=== PATIENT | female | born 1930 | race Caucasian/White ===

== ENCOUNTER 2016-10-12 10:28 | Emergency (ER) | payer MEDICARE ==
[2016-10-12 10:45] VITALS: TEMP 98.3; BMI 17.4
[2016-10-12] MEDS ORDERED: SODIUM CHLORIDE 0.9% 3 ML FLUSH FLUSH PRN (11:00)
[2016-10-12] MEDS ORDERED: NS 1,000 ML IV ONE (11:01)
[2016-10-12 11:12] LABS: AUTOMATED BASOPHIL 1.1 % (0-2); AUTOMATED EOSINOPHIL 2.1 % (0-5); AUTOMATED LYMPH 29.4 % (17-44); AUTOMATED MONOCYTE 9.8 % (3-10); AUTOMATED NEUTROPHIL 57.6 % (45-76); MPV 7.8 fL (7.4-10.4)
[2016-10-12 11:24] LABS: BLOOD UREA NITROGEN 19 MG/DL (7-17); CALCIUM 9.6 MG/DL (8.4-10.2); CALCULATED OSMOLALITY 277 MOs/Kg (270-290); CHLORIDE 105 mEq/L (98-107); GLUCOSE 91 MG/DL (70-99); SODIUM LEVEL 143 mEq/L (137-146); TOTAL PROTEIN 7.5 G/DL (6.3-8.2)
[2016-10-12 11:25] LABS: PARTIAL THROMB. TIME 22.9 SEC (22-35)
--- NOTE | 2016-10-12 11:28 | DIRPT ---
CLINICAL DATA: Right facial weakness and numbness beginning this morning. EXAM: PORTABLE CHEST 1 VIEW COMPARISON: 08/13/2014 FINDINGS: Mild cardiomegaly. No confluent airspace opacities, effusions or edema. No acute bony abnormality. IMPRESSION: Mild cardiomegaly. No active disease. Electronically Signed By: Joaquin Mantilla M.D. On: 10/12/2016 11:26
--- NOTE | 2016-10-12 11:43 | DIRPT ---
CLINICAL DATA: Right side facial numbness starting this a.m. EXAM: CT HEAD WITHOUT CONTRAST TECHNIQUE: Contiguous axial images were obtained from the base of the skull through the vertex without intravenous contrast. COMPARISON: 08/13/2014 FINDINGS: No skull fracture is noted. Mild atherosclerotic calcifications of carotid siphon. No intracranial hemorrhage, mass effect or midline shift. Stable mild cerebral atrophy. Stable periventricular chronic white matter disease. No definite acute cortical infarction. No mass lesion is noted on this unenhanced scan. No intra or extra-axial fluid collection. IMPRESSION: No acute intracranial abnormality. Stable atrophy and chronic white matter disease. Electronically Signed By: Reji Neri M.D. On: 10/12/2016 11:40
[2016-10-12 12:09] LABS: LEUKOCYTES/URINE 1+ (NEGATIVE); NITRITE/URINE NEG (NEGATIVE); RBC/URINE 0-2 (0-5); URINE OCCULT BLOOD NEG (NEG/TRACE); WBC/URINE 0-2 (0-5)
--- NOTE | 2016-10-12 12:30 | EDPRACDOC ---
- Treatment Prior to ED Arrival Reported ASPIRIN 160MG DAILY <Eduardo Johnson - Last Filed: 10/12/16 13:35> - General Information Information Source: Patient Mode of Arrival:: Car - History of Present Illness Exact Onset of Symptoms: Unknown Date Symptoms Started: 10/12/16 Symptoms Started: Reports: While asleep Symptoms: Reports: Numbness (RIGHT SIDE FACE EAR, NECK AND RIGHT ARM.) Symptoms Description: Improved Symptom Severity: Reports: Does not affect activitiy Weakness: Right: Arm, Face, Other (RIGHT EAR) Associated signs and symptoms:: Reports: None - Other History Other History: PT SENT TO ED FROM URGENT CARE FOR RIGHT SIDE EAR NUMBNESS FACE NECK AND FUNNY FEELING OF RIGHT ARM STATES IT WAS GOING ON WHEN SHE WOKE UP AROUND 7AM, UNKNOWN EXACT ONSET PT STATES MOST OF HER SYMPTOMS HAVE RESOLVED ACCEPT MILD NUMB FEELING OF HER RIGHT EAR. NO SLURRED SPEECH FACIAL DROOPING OR UNILATERAL WEAKNESS AT THIS TIME. <Eduardo Johnson - Last Filed: 10/12/16 13:35> <Casandra Campos - Last Filed: 10/12/16 17:41> - General Information Chief Complaint: Neuro Symptoms/Deficits Stated Complaint: STROKE LIKE SYMPTOMS Time Seen by Provider: 10/12/16 10:59 Home Medications: Home Medications Aspirin [Lo-Dose Aspirin EC] 160 mg PO DAILY 08/13/14 Calcium Carbonate [Calcium] 600 mg PO DAILY 08/13/14 Captopril 12.5 mg PO QAM 08/13/14 Levothyroxine [Synthroid, Levoxyl] 50 mcg PO DAILY 08/13/14 Metoprolol Succinate (XL) [Toprol Xl] 50 mg PO DAILY #30 tab 08/13/14 Mirtazapine [Remeron] 7.5 mg PO HS PRN 10/12/16 Allergies/Adverse Reactions: Allergies Allergy/AdvReac Type Severity Reaction Status Date / Time atorvastatin calcium Allergy See Verified 10/12/16 10:45 [From Lipitor] Comments codeine Allergy See Verified 10/12/16 10:45 Comments ezetimibe [From Zetia] Allergy See Verified 10/12/16 10:45 Comments Penicillins Allergy Hives* Verified 10/12/16 10:45 procaine HCl [From Novocain] Allergy See Verified 10/12/16 10:45 Comments simvastatin [From Zocor] Allergy See Verified 10/12/16 10:45 Comments Sulfa (Sulfonamide Allergy See Verified 10/12/16 10:45 Antibiotics) Comments ED Past Medical History - History Reviewed Yes Nurses notes reviewed and agree except as marked Travel Outside of [place] in the Last 3 Months?: No - Patient Medical History Cardiac History: Reports: Hypertension, Hypercholesterolemia (UNTREATED) Psychological History: Denies: Depression Systemic History: Reports: Hypothyroidism - Social Medical History Smoking Status: Former smoker ETOH: None Substance Abuse: None Lives With: Other Lives In: Home <Eduardo Johnson - Last Filed: 10/12/16 13:35> EDM Review of Systems - Review of Systems ROS Negative Except as Marked: Yes All systems reviewed and were negative except as marked Constitutional: No Symptoms Reported. negative: Fever, Chills, Weakness, Fatigue, Loss of Appetite Eyes: No Symptoms Reported. negative: Redness, Blurred Vision, Double Vision, Discharge, Pain, Light Sensitive, Photophobia Ears: Other (RT EAR NUMBNESS). negative: Drainage, Ear Pulling, Hearing Loss, Pain Throat: No Symptoms Reported. negative: Pain, Swelling Nose: No Symptoms Reported. negative: Congestion, Bleeding, Discharge, Injection, Swelling, Deformity, Ecchymosis, Tender, Abrasion, Laceration Mouth: No Symptoms Reported. negative: Pain, Drooling Respiratory: No Symptoms Reported. negative: Cough, Brassy Cough, Barky Cough, Shortness of Breath, Wheezing, Hemoptysis Cardiovascular: No Symptoms Reported. negative: Chest Pain, Palpitations, Syncope, Edema, Orthopnea, PND, Skin Mottling, Cyanosis Gastrointestinal: No Symptoms Reported. negative: Pain, Constipation, Nausea, Vomiting, Diarrhea, Melena, Formula Intolerance Genitourinary: No Symptoms Reported. negative: Dysuria, Hematuria, Frequency, Discharge, Bleeding, Testicular Pain, Neurological: Numbness (RT EAR FACE NECK AND ARM STATES NOTICED IT WHEN SHE WOKE UP THIS AM. PT STATES SYMPTOMS HAVE ALMOST COMPLETELY RESOLVED AT THIS TIME.). negative: Dizziness, Gait Difficulty, Headache, Seizure, Speech Difficulty, Weakness Musculoskeletal: No Symptoms Reported. negative: Neck, Chestwall, Ribs, Back, Shoulder, Arm, Elbow, Forearm, Wrist, Hand, Pelvis, Hip, Femur, Knee, Leg, Ankle , Foot Integumentary: No Symptoms Reported. negative: Itching, Rash, Bruising, Wound Allergic/Immunologic: No Symptoms Reported. negative: Hives, Itching Hematologic: No Symptoms Reported. negative: Lymphadenopathy, Easy Bruising, Easy Bleeding Endocrine: No Symptoms Reported. negative: Weight Gain, Weight Loss Psychiatric: No Symptoms Reported. negative: Anxiety, Depression, Hallucinations, Insomnia, Suicidal <Eduardo Johnson - Last Filed: 10/12/16 13:35> - Physical Exam Constitutional: Alert (Awake), No apparent distress Oriented to: Time, Person, Place Last recorded Vital Signs: Last Vital Signs Temp 98.3 F 10/12/16 10:38 Pulse 63 10/12/16 11:30 Resp 18 10/12/16 11:30 BP 190/84 H 10/12/16 11:30 Pulse Ox 97 10/12/16 11:30 Oxygen Pulse Oxygen Saturation 97 O2 Device Oxygen Flow Rate Fraction of Inspired Oxygen ( FIO2) - HEENT Head: Normal ( normocephalic) Eye Exam: Normal (PERRL, EOMI, Sclera white) Oropharynx: Normal (Pharynx:Moist without exudate,Gums-no swelling) Tympanic Membrane: Normal ENT EAC: Normal, Other (PT DOES HAVE FEELING IN BOTH EXTERNAL EARS, SHE STATES JUST FEELS DIFFERENT) TMJ: Normal Nose: No Symptoms Reported (septum midline) Neck: Normal (FROM, trachea at midline) - Respiratory/Cardiovascular Respiratory: Normal - CTA (BBS clear to auscultation without adventitious sounds ) Cardiovascular: Normal (RRR without murmur, gallop or rub) - GI Auscultation: Normal (NABS) Palpation: Normal (Soft,No rebound or guarding, non distended) Tenderness: Non tender Real's Sign: Negative - Bladder: Normal - Musculoskeletal Back: Normal (Non-Tender) Extremities: Normal (Normal tone, Pulses 2+ No cyanosis or edema, FROM) - Integumentary Skin: Normal, Warm, Dry Lymphatics: Normal (no adenopathy) - Neurologic Memory Impaired: Normal Motor Function: Normal (Normal tone, Pulses 2+ No cyanosis or edema, FROM) Cranial Nerve: Normal (CN II-X11 intact sensation, strength 5/5) Cerebellar: Normal Mood Description: Normal Thought: Coherent Perception: Normal <Eduardo Johnson - Last Filed: 10/12/16 13:35> - Physical Exam Last recorded Vital Signs: Last Vital Signs Temp 98.3 F 10/12/16 10:38 Pulse 70 10/12/16 14:22 Resp 20 10/12/16 14:22 BP 168/85 10/12/16 14:22 Pulse Ox 97 10/12/16 14:22 Oxygen Pulse Oxygen Saturation 97 O2 Device Room Air Oxygen Flow Rate Fraction of Inspired Oxygen ( FIO2) <CamposKaykay higginskiara Torres - Last Filed: 10/12/16 17:41> NIH Stroke Scale Initial Evaluation Level of Consciousness: Alert LOC- Question: Answers Both Correctly LOC Commands: Both Task Correctly Best Gaze: Normal Visual: No Visual Loss Facial Palsy: Normal Movement Motor Arm LEFT: No Drift Motor Arm RIGHT: No Drift Motor Leg LEFT: No Drift Motor Leg RIGHT: No Drift Limb Ataxia: Absent Sensory: Normal Best Language: No Aphasia Dysarthria: Normal Extinction and Inattention: No Abnormality (Neglect) Score: 0out of42 <Eduardo Johnson - Last Filed: 10/12/16 13:35> - Differential Diagnosis Salmeron's Palsy, CVA, Electrolyte disorder, Hypoglycemia, Mass lesion, SAH, TIA - Action Has patient received an Antithrombotic in the last 24hrs?: No Was an Antithrombotic given in the ED?: No (SYMPTOMS RESOLVING, ONSET UNDETERMINED) Antithrombotic Contraindicated: Other *free text (SYMPTOMS RESOLVING ONSET UNDETERMINED) Is patient a candidate for lytic therapy?: No Patient received TPA within 30 min of arrival?: No Reason IV Thrombolytics Contraindicated: Onset Undetermined Stroke Discharge Education: Risk Factors, Seeking Emerg. Treatment, Warning Signs/Symptoms, Medications at Discharge, Follow Up after Discharge - Results 10/12/16 10:40 10/12/16 10:40 WBC 10.0 xk/uL (3.8-10.8) 10/12/16 10:40 RBC 4.40 xM/uL (4.20-5.40) 10/12/16 10:40 Hgb 13.6 g/dL (12.0-16.0) 10/12/16 10:40 Hct 40.8 % (36-47) 10/12/16 10:40 MCV 93 fL (81-99) 10/12/16 10:40 MCH 30.9 pg (27-32) 10/12/16 10:40 MCHC 33.3 g/dl (33-36) 10/12/16 10:40 RDW 14.2 % (11.5-14.5) 10/12/16 10:40 Plt Count 243 xk/uL (130-400) 10/12/16 10:40 MPV 7.8 fL (7.4-10.4) 10/12/16 10:40 Neut % (Auto) 57.6 % (45-76) 10/12/16 10:40 Lymph % (Auto) 29.4 % (17-44) 10/12/16 10:40 [place] % (Auto) 9.8 % (3-10) 10/12/16 10:40 Eos % (Auto) 2.1 % (0-5) 10/12/16 10:40 Baso % (Auto) 1.1 % (0-2) 10/12/16 10:40 Absolute Neuts (auto) 5.70 xk/uL (1.7-8.2) 10/12/16 10:40 Absolute Lymphs (auto) 2.90 xk/uL (0.65-4.75) 10/12/16 10:40 PT 10.3 SEC (9.2-11.2) 10/12/16 10:40 INR 1.0 10/12/16 10:40 APTT 22.9 SEC (22-35) 10/12/16 10:40 Sodium 143 mEq/L (137-146) 10/12/16 10:40 Potassium 3.7 mEq/L (3.5-5.1) 10/12/16 10:40 Chloride 105 mEq/L (98-107) 10/12/16 10:40 Carbon Dioxide 28 mMOL/L (22-33) 10/12/16 10:40 Anion Gap 14 mEq/L (8-16) 10/12/16 10:40 BUN 19 MG/DL (7-17) H 10/12/16 10:40 Creatinine 0.90 MG/DL (0.52-1.04) 10/12/16 10:40 Estimated GFR (MDRD) 60 mL/min (>=60) 10/12/16 10:40 Glucose 91 MG/DL (70-99) 10/12/16 10:40 Calculated Osmolality 277 MOs/Kg (270-290) 10/12/16 10:40 Calcium 9.6 MG/DL (8.4-10.2) 10/12/16 10:40 Total Bilirubin 0.5 MG/DL (0.2-1.3) 10/12/16 10:40 AST 26 IU/L (14-36) 10/12/16 10:40 ALT 29 IU/L (9-52) 10/12/16 10:40 Alkaline Phosphatase 105 IU/L (55-165) 10/12/16 10:40 Troponin I < 0.01 ng/mL (<.04) 10/12/16 10:40 Xfc-V-Fjjrlaeomjx Pept 451 pg/mL (0-1800) 10/12/16 10:40 Total Protein 7.5 G/DL (6.3-8.2) 10/12/16 10:40 Albumin 4.0 G/DL (3.5-5.0) 10/12/16 10:40 Urine Color Pale yellow 10/12/16 11:55 Urine Clarity Clear 10/12/16 11:55 Urine pH 6.0 (5.0-8.0) 10/12/16 11:55 Ur Specific [place] 1.010 (1.003-1.035) 10/12/16 11:55 Urine Protein Neg (NEG/TRACE) 10/12/16 11:55 Urine Glucose (UA) Neg (NEGATIVE) 10/12/16 11:55 Urine Ketones Neg (NEGATIVE) 10/12/16 11:55 Urine Occult Blood Neg (NEG/TRACE) 10/12/16 11:55 Urine Nitrite Neg (NEGATIVE) 10/12/16 11:55 Urine Bilirubin Neg (NEGATIVE) 10/12/16 11:55 Urine Urobilinogen <2.0 MG/DL (0-1) 10/12/16 11:55 Ur Leukocyte Esterase 1+ (NEGATIVE) H 10/12/16 11:55 Urine RBC 0-2 (0-5) 10/12/16 11:55 Urine WBC 0-2 (0-5) 10/12/16 11:55 Ur Epithelial Cells Occ 10/12/16 11:55 Urine Bacteria Few (NEG/FEW) 10/12/16 11:55 Lab Results 10/12/16 10/12/16 10/12/16 11:55 10:40 10:40 WBC 10.0 RBC 4.40 Hgb 13.6 Hct 40.8 MCV 93 MCH 30.9 MCHC 33.3 RDW 14.2 Plt Count 243 MPV 7.8 Neut % (Auto) 57.6 Lymph % (Auto) 29.4 [place] % (Auto) 9.8 Eos % (Auto) 2.1 Baso % (Auto) 1.1 Absolute Neuts (auto) 5.70 Absolute Lymphs (auto) 2.90 PT 10.3 INR 1.0 APTT 22.9 Sodium Potassium Chloride Carbon Dioxide Anion Gap BUN Creatinine Estimated GFR (MDRD) Glucose Calculated Osmolality Calcium Total Bilirubin AST ALT Alkaline Phosphatase Troponin I Vlf-E-Rqcmasydgfr Pept Total Protein Albumin Urine Color Pale yellow Urine Clarity Clear Urine pH 6.0 Ur Specific [place] 1.010 Urine Protein Neg Urine Glucose (UA) Neg Urine Ketones Neg Urine Occult Blood Neg Urine Nitrite Neg Urine Bilirubin Neg Urine Urobilinogen <2.0 Ur Leukocyte Esterase 1+ H Urine RBC 0-2 Urine WBC 0-2 Ur Epithelial Cells Occ Urine Bacteria Few 10/12/16 10:40 WBC RBC Hgb Hct MCV MCH MCHC RDW Plt Count MPV Neut % (Auto) Lymph % (Auto) [place] % (Auto) Eos % (Auto) Baso % (Auto) Absolute Neuts (auto) Absolute Lymphs (auto) PT INR APTT Sodium 143 Potassium 3.7 Chloride 105 Carbon Dioxide 28 Anion Gap 14 BUN 19 H Creatinine 0.90 Estimated GFR (MDRD) 60 Glucose 91 Calculated Osmolality 277 Calcium 9.6 Total Bilirubin 0.5 AST 26 ALT 29 Alkaline Phosphatase 105 Troponin I < 0.01 Gou-D-Mgcohipbmuc Pept 451 Total Protein 7.5 Albumin 4.0 Urine Color Urine Clarity Urine pH Ur Specific [place] Urine Protein Urine Glucose (UA) Urine Ketones Urine Occult Blood Urine Nitrite Urine Bilirubin Urine Urobilinogen Ur Leukocyte Esterase Urine RBC Urine WBC Ur Epithelial Cells Urine Bacteria - Diagnostic Imaging CT HEAD Image interpreted by: Radiologist IMPRESSION: No acute intracranial abnormality. Stable atrophy and chronic white matter disease. CXR Image interpreted by: Radiologist IMPRESSION: Mild cardiomegaly. No active disease. <Eduardo Johnson - Last Filed: 10/12/16 13:35> - Results 10/12/16 10:40 10/12/16 10:40 WBC 10.0 xk/uL (3.8-10.8) 10/12/16 10:40 RBC 4.40 xM/uL (4.20-5.40) 10/12/16 10:40 Hgb 13.6 g/dL (12.0-16.0) 10/12/16 10:40 Hct 40.8 % (36-47) 10/12/16 10:40 MCV 93 fL (81-99) 10/12/16 10:40 MCH 30.9 pg (27-32) 10/12/16 10:40 MCHC 33.3 g/dl (33-36) 10/12/16 10:40 RDW 14.2 % (11.5-14.5) 10/12/16 10:40 Plt Count 243 xk/uL (130-400) 10/12/16 10:40 MPV 7.8 fL (7.4-10.4) 10/12/16 10:40 Neut % (Auto) 57.6 % (45-76) 10/12/16 10:40 Lymph % (Auto) 29.4 % (17-44) 10/12/16 10:40 [place] % (Auto) 9.8 % (3-10) 10/12/16 10:40 Eos % (Auto) 2.1 % (0-5) 10/12/16 10:40 Baso % (Auto) 1.1 % (0-2) 10/12/16 10:40 Absolute Neuts (auto) 5.70 xk/uL (1.7-8.2) 10/12/16 10:40 Absolute Lymphs (auto) 2.90 xk/uL (0.65-4.75) 10/12/16 10:40 PT 10.3 SEC (9.2-11.2) 10/12/16 10:40 INR 1.0 10/12/16 10:40 APTT 22.9 SEC (22-35) 10/12/16 10:40 Sodium 143 mEq/L (137-146) 10/12/16 10:40 Potassium 3.7 mEq/L (3.5-5.1) 10/12/16 10:40 Chloride 105 mEq/L (98-107) 10/12/16 10:40 Carbon Dioxide 28 mMOL/L (22-33) 10/12/16 10:40 Anion Gap 14 mEq/L (8-16) 10/12/16 10:40 BUN 19 MG/DL (7-17) H 10/12/16 10:40 Creatinine 0.90 MG/DL (0.52-1.04) 10/12/16 10:40 Estimated GFR (MDRD) 60 mL/min (>=60) 10/12/16 10:40 Glucose 91 MG/DL (70-99) 10/12/16 10:40 Calculated Osmolality 277 MOs/Kg (270-290) 10/12/16 10:40 Calcium 9.6 MG/DL (8.4-10.2) 10/12/16 10:40 Total Bilirubin 0.5 MG/DL (0.2-1.3) 10/12/16 10:40 AST 26 IU/L (14-36) 10/12/16 10:40 ALT 29 IU/L (9-52) 10/12/16 10:40 Alkaline Phosphatase 105 IU/L (55-165) 10/12/16 10:40 Troponin I < 0.01 ng/mL (<.04) 10/12/16 10:40 Mpc-U-Rsdbgefrcde Pept 451 pg/mL (0-1800) 10/12/16 10:40 Total Protein 7.5 G/DL (6.3-8.2) 10/12/16 10:40 Albumin 4.0 G/DL (3.5-5.0) 10/12/16 10:40 Urine Color Pale yellow 10/12/16 11:55 Urine Clarity Clear 10/12/16 11:55 Urine pH 6.0 (5.0-8.0) 10/12/16 11:55 Ur Specific [place] 1.010 (1.003-1.035) 10/12/16 11:55 Urine Protein Neg (NEG/TRACE) 10/12/16 11:55 Urine Glucose (UA) Neg (NEGATIVE) 10/12/16 11:55 Urine Ketones Neg (NEGATIVE) 10/12/16 11:55 Urine Occult Blood Neg (NEG/TRACE) 10/12/16 11:55 Urine Nitrite Neg (NEGATIVE) 10/12/16 11:55 Urine Bilirubin Neg (NEGATIVE) 10/12/16 11:55 Urine Urobilinogen <2.0 MG/DL (0-1) 10/12/16 11:55 Ur Leukocyte Esterase 1+ (NEGATIVE) H 10/12/16 11:55 Urine RBC 0-2 (0-5) 10/12/16 11:55 Urine WBC 0-2 (0-5) 10/12/16 11:55 Ur Epithelial Cells Occ 10/12/16 11:55 Urine Bacteria Few (NEG/FEW) 10/12/16 11:55 Lab Results 10/12/16 10/12/16 10/12/16 11:55 10:40 10:40 WBC 10.0 RBC 4.40 Hgb 13.6 Hct 40.8 MCV 93 MCH 30.9 MCHC 33.3 RDW 14.2 Plt Count 243 MPV 7.8 Neut % (Auto) 57.6 Lymph % (Auto) 29.4 [place] % (Auto) 9.8 Eos % (Auto) 2.1 Baso % (Auto) 1.1 Absolute Neuts (auto) 5.70 Absolute Lymphs (auto) 2.90 PT 10.3 INR 1.0 APTT 22.9 Sodium Potassium Chloride Carbon Dioxide Anion Gap BUN Creatinine Estimated GFR (MDRD) Glucose Calculated Osmolality Calcium Total Bilirubin AST ALT Alkaline Phosphatase Troponin I Gtt-H-Ssiuyffqbie Pept Total Protein Albumin Urine Color Pale yellow Urine Clarity Clear Urine pH 6.0 Ur Specific [place] 1.010 Urine Protein Neg Urine Glucose (UA) Neg Urine Ketones Neg Urine Occult Blood Neg Urine Nitrite Neg Urine Bilirubin Neg Urine Urobilinogen <2.0 Ur Leukocyte Esterase 1+ H Urine RBC 0-2 Urine WBC 0-2 Ur Epithelial Cells Occ Urine Bacteria Few 10/12/16 10:40 WBC RBC Hgb Hct MCV MCH MCHC RDW Plt Count MPV Neut % (Auto) Lymph % (Auto) [place] % (Auto) Eos % (Auto) Baso % (Auto) Absolute Neuts (auto) Absolute Lymphs (auto) PT INR APTT Sodium 143 Potassium 3.7 Chloride 105 Carbon Dioxide 28 Anion Gap 14 BUN 19 H Creatinine 0.90 Estimated GFR (MDRD) 60 Glucose 91 Calculated Osmolality 277 Calcium 9.6 Total Bilirubin 0.5 AST 26 ALT 29 Alkaline Phosphatase 105 Troponin I < 0.01 Phg-L-Rpqfdstwtmq Pept 451 Total Protein 7.5 Albumin 4.0 Urine Color Urine Clarity Urine pH Ur Specific [place] Urine Protein Urine Glucose (UA) Urine Ketones Urine Occult Blood Urine Nitrite Urine Bilirubin Urine Urobilinogen Ur Leukocyte Esterase Urine RBC Urine WBC Ur Epithelial Cells Urine Bacteria - EKG EKG #1 EKG Time: 10:42 -: Yes EKG interpreted by me Rate: bpm: 64 [place]: Normal Rhythm: NSR Block: None Hypertrophy: None ST: Nonsp - Additional Information AT BASELINE, UNCLEAR IF TIA. ON ASA. EKG NSR. <Casandra Campos - Last Filed: 10/12/16 17:41> Decision Time to Discharge: 13:36 - Departure Disposition: Home Education/Counseling Given To: Patient Education/Counseling Given Regarding: Diagnosis, Treatment, Prognosis, Follow Up <Eduardo Johnson - Last Filed: 10/12/16 13:35> - Departure Yes I personally saw and evaluated the patient. <Casandra Campos - Last Filed: 10/12/16 17:41> - Departure Condition: Stable Final Diagnosis: Transient ischemic attack Instructions: Transient Ischemic Attack (ED) Referrals: Mark Anthony Bourgeois MD [Primary Care Provider] - One Week Chepe Barone MD [Staff Physician] - One Week Prescriptions: No Action Levothyroxine [Synthroid, Levoxyl] 50 mcg PO DAILY Captopril 12.5 mg PO QAM Calcium Carbonate [Calcium] 600 mg PO DAILY Aspirin [Lo-Dose Aspirin EC] 160 mg PO DAILY Metoprolol Succinate (XL) [Toprol Xl] 50 mg PO DAILY #30 tab Mirtazapine [Remeron] 7.5 mg PO HS PRN PRN Reason: ANXIETY/SLEEP Additional Instructions: INCREASE YOUR ASPIRIN TO 325MG DAILY. RETURN FOR WORSE OR DIFFERENT SYMPTOMS.
[2016-10-12] MEDS ORDERED: ASPIRIN 325 MG TAB PO ONE (13:18)
[2016-10-12 14:23] VITALS: BP 168/85; PULSE 70
[2016-10-12] MEDS ORDERED: SODIUM CHLORIDE 0.9% 3 ML FLUSH FLUSH SCH (18:00)
== END 2016-10-12 14:25 | disposition home or self-care (01) ==
LOC: ED 10:28
DX: G45.9 Transient cerebral ischemic attack, unspecified (principal)
CPT/HCPCS: 36415; 70450; 71010; 80053; 81001; 83880; 84484; 85025; 85610; 85730; 93005; 96360; 99284; A9270; J3490